=== PATIENT | male | born 1980 ===

== ENCOUNTER 2025-05-21 09:09 | Outpatient (AMB) | payer BC, SELFPAY ==
--- NOTE | 2025-05-21 09:06 | A.OFFVIS_ITS ---
Intake Visit Reasons: bilateral vericoceles Intake Note: New Patient is present for bilateral Vericoceles Urology Rx:none Blood Thinners:none Imaging completed: 02/19/2025 (MR PG 10) Immigration Judge Required: No Accompanied by: Self / Same As Patient Allergies No Known Allergies Allergy (Verified 05/21/25 09:37) Medication List - Last Reconciled 05/21/25 by CARLA Quinn albuterol sulfate 90 mcg/actuation inhalation budesonide-formoterol 160-4.5 mcg/actuation 2 puffs inhalation BID lisinopril 20 mg PO DAILY HPI Comments Details: Lewis is a very pleasant 45-year-old male patient of Dr. Melendez. He has a past medical history of bilateral varicoceles, folliculitis, moderate persistent asthma, smoker, seasonal nodule abuse, history of drug use, and hep C. He presents to the office today as a new patient for bilateral varicoceles. In discussion with the patient today reports having followed up with his PCP for palpable lump to the right side of his scrotum at which time a scrotal ultrasound was ordered and performed. These results were reviewed and communicated with the patient today. 02/21 no testicular mass. Bilateral varicoceles. Right varicocele corresponds with palpable area. Normal testicular color Doppler evaluation per radiology report. He denies any bothersome urinary issues or concerns. He denies any pain to the area. He reports feeling palpable area approximately 3 months ago. In assessment of the patient today bilateral varicoceles are present. Otherwise no palpable masses open areas or drainage noted. We did discussed potential causes of varicoceles as well as further treatment options and risks and benefits of these treatment options. He denies urinary urgency, urinary frequency, incontinence, nocturia, hematuria, dysuria, foul smelling urine, changes to urinary stream, flank pain, fever, and or chills. He is happy with his current voiding parameters. In office urinalysis results reviewed with the patient today. All questions were answered. He otherwise offers no other issues or concerns at this time. [facility] Medical History (Updated 05/21/25 @ 09:36 by CARLA Quinn) Bilateral varicoceles Testicular lump Folliculitis PPD positive High triglycerides Moderate persistent allergic asthma without complication Current smoker Seasonal allergies History of drug use History of hepatitis C Mild intermittent asthma without complication Review of Systems Const All systems reviewed & are unremarkable except as noted in HPI and below Physical Exam Const General: cooperative, healthy appearing, comfortable, no acute distress, well developed, alert and awake Orientation/consciousness: patient oriented x3 Limitations: no limitations HEENT Head: Yes normal to inspection, Yes normocephalic and Yes atraumatic Ears: hearing grossly normal bilaterally Eyes General: appearance normal, both eyes and all related structures Neck Neck: Yes normal visual inspection and Yes trachea midline Chest Chest palpation & inspection: normal inspection of the chest Resp Effort & Inspection: normal respiratory effort and able to speak in complete sentences Cardio Rate: regular rate GI Inspection: Yes normal to inspection General: Yes no CVA tenderness Back/Spine/Pelvis Back: no CVA tenderness Skin General skin exam: no rashes or lesions noted Neuro General: patient oriented x3 Extrem General: Yes normal to inspection Psych Appearance: grossly normal and well kempt Mental Status: mental status grossly normal Speech and movement: Normal speech and movement present and Clear speech present Affect: normal affect Attitude: cooperative Thought process: Normal thought process present Thought content: Normal thought content present Insight: Fair insight present (Psych) Judgement: Fair judgement present (Psych) Assessment & Plan Assessment & Plan (1) Bilateral varicoceles: Code(s): I86.1 - Scrotal varices Category: Medical Plan Recent scrotal ultrasound results reviewed with the patient today; as noted above. We discussed potential causes of varicoceles as well as further treatment options and risks and benefits of these treatment options. He currently denies any bothersome urinary issues or concerns. He reports be happy with current voiding parameters. Will continue with surveillance monitoring. Will obtain scrotal ultrasound in 1 year. Follow-up in 1 year with imaging to be completed prior; or sooner with any issues, concerns, and or questions. Orders: Orders US scrotum 1 Year I86.1 - Scrotal varices Patient Instructions: The patient had an opportunity to ask questions regarding the treatment plan. All questions were answered. Physical exam, labs, and imaging were discussed and reviewed in detail. As well as risks, benefits, and discussion of treatment choices. No major barriers to understanding were identified. The patient expressed understanding and agreement with the above treatment plan. The patient was made aware they should contact our office by phone for worsening of their current condition, the appearance of new symptoms, or with any questions or concerns. Compliance is encouraged with any medications and follow up testing that is ordered. It is a privilege to be allowed the opportunity to participate in? your urological care.? Again, if you have any questions or concerns If you have any questions or concerns please do not hesitate to contact me. The office is [phone]. This note is constructed using voice recognition software. While every effort has been made to ensure accuracy deboner errors may have been included. Yours sincerely, CARLA Quinn Coding Level of Care Code New Pt Level 3 (13968) Diagnoses Bilateral varicoceles I86.1
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
== END 2025-05-21 09:38 | disposition home or self-care (01) ==
LOC: HO.HUSH 09:10
PROVIDERS: PCP Physician Assistant; Visit Provider Nurse Practitioner Family
DX: Z13.9 Encounter for screening, unspecified (principal); I86.1 Scrotal varices
CPT/HCPCS: 99203

== ENCOUNTER → 2025-05-21 09:09 | Outpatient (BNVA) | payer BC, SELFPAY | PROVIDERS: PCP Physician Assistant; Visit Provider Nurse Practitioner Family | DX: I86.1 Scrotal varices (principal) | CPT/HCPCS: 81003 ==